=== PATIENT | male | born 1985 | race Caucasian/White ===

== ENCOUNTER 2024-05-29 08:03 | Emergency (ER) | payer OTHER ==
[2024-05-29] MEDS ORDERED: Ondansetron PF 4 MG/2 ML Vial ONE (08:22)
[2024-05-29] MEDS ORDERED: Morphine 4 MG/ML VIAL ONE (08:22)
[2024-05-29] MEDS ORDERED: Boostrix 0.5 ML (Tdap) VIAL (>/=7 yrs of age) ONE (08:23)
[2024-05-29 08:40] LABS: Prothrombin Time 12.7 sec (12.0-14.7)
[2024-05-29 08:41] LABS: PTT 29.8 sec (22.9-36.1)
[2024-05-29 08:42] LABS: Hematocrit 42.2 % (42.0-52.0); Mean Corpuscular HGB CONC 30.8 g/dL (32.0-36.0); Mean Corpuscular Volume 94.1 fl (78.0-98.0); Mean Platelet Volume 7.6 fL (7.4-10.4); Platelet Count 346 10x3/uL (130-400); RBC Distribution Width 13.2 % (11.5-14.5); Red Blood Cell (RBC) Count 4.48 mill/uL (4.70-6.10); White Blood Cell (WBC) Count 9.7 10x3/uL (4.8-10.8)
[2024-05-29 08:48] LABS: ALT (SGPT) 16 U/L (8-55); AST (SGOT) 22 U/L (5-34); Albumin 3.3 g/dL (3.5-5.0); Alkaline Phosphatase 78 U/L (40-110); Anion Gap 17 mmol/L (10-20); BUN (Urea Nitrogen) 11 mg/dL (8.9-20.6); Bilirubin, Total 0.3 mg/dL (0.2-1.2); Calc. Creatinine Clearance 0 mL/min (70-130); Carbon Dioxide 19 mmol/L (22-29); Chloride 107 mmol/L (98-107); Estimated GFR 73; Globulin 3.9 g/dL (2.4-3.5); Glucose 103 mg/dL (70-105); Potassium 4.3 mmol/L (3.5-5.1); Protein, Total 7.2 g/dL (6.0-8.3); Sodium 139 mmol/L (136-145)
[2024-05-29 08:49] LABS: Troponin I Less than 0.010 ng/mL (< 0.028)
[2024-05-29 08:57] LABS: Anisocytosis SLIGHT = 6-15 cells (100X) (0-5/hpf); Eosinophils 1 % (0-10); Lymphocytes 10 % (21-51); MDiff Complete? YES; Manual Diff?? YES; Monocytes 9 % (0-10); Neutrophil 70 % (42-75); Reactive Lymphocytes 10 % (0-10)
[2024-05-29 08:58] LABS: Hypochromia SLIGHT = 6-15 cells (100X) (0-5/hpf); Platelet Adequacy Comment Appears Adequate
[2024-05-29] MEDS ORDERED: Iopamidol 370 76% 100 ML VIAL ONE (09:00)
[2024-05-29] MEDS ORDERED: Lidocaine 1% w/Epinephrine 1:100K 20 ML VIAL ONE (09:56)
[2024-05-29] MEDS ORDERED: Bacitracin 1 PK ONE (10:59)
== END 2024-05-29 11:45 | disposition home or self-care (01) ==
LOC: MADERS 08:03
DX: S01.01XA Laceration without foreign body of scalp, initial encounter (principal); S01.81XA Laceration without foreign body of other part of head, initial encounter; S71.112A Laceration without foreign body, left thigh, initial encounter; S31.010A Laceration without foreign body of lower back and pelvis without penetration into retroperitoneum, initial encounter; I10 Essential (primary) hypertension; F17.210 Nicotine dependence, cigarettes, uncomplicated; Z23 Encounter for immunization
CPT/HCPCS: 12002; 70450; 71045; 71260; 72125; 74177; 80053; 83605; 84484; 85025; 85610; 85730; 90471; 90715; 93005; 96374; 96375; G0390; J2272; J2405; Q9967